=== PATIENT | male | born 1985 | race Caucasian/White ===

== ENCOUNTER 2019-01-31 06:55 | Day surgery (SDC) | payer OTHER ==
[2019-01-31] MEDS ORDERED: NEOSTIGMINE 10 MG INJ (07:00)
[2019-01-31] MEDS ORDERED: CLINDAMYCIN 900 MG/50 ML D5W IVPB IVPB (07:00)
[2019-01-31] MEDS ORDERED: BACITRACIN/POLYMYXIN 28.35 GM OINT TOP (09:18)
[2019-01-31] MEDS ORDERED: ROCURONIUM 50 MG INJ (09:28)
[2019-01-31] MEDS ORDERED: CEFAZOLIN 1 GM INJ (09:28)
[2019-01-31] MEDS ORDERED: PROPOFOL 20 ML (09:28)
[2019-01-31] MEDS ORDERED: GLYCOPYRROLATE 0.4 MG INJ (09:28)
[2019-01-31] MEDS ORDERED: FENTAnyl 50 MCG/ML VIAL (09:29)
[2019-01-31] MEDS ORDERED: DEXAMETHASONE 4 MG/ML 5 ML INJ (09:29)
[2019-01-31] MEDS ORDERED: ONDANSETRON 4 MG INJ (09:29)
[2019-01-31] MEDS ORDERED: MIDAZOLAM 1 MG/ML 2 ML INJ (09:29)
[2019-01-31] MEDS ORDERED: ROPIVACAINE 0.5 % 30 ML VIAL (09:29)
[2019-01-31] MEDS ORDERED: IPRATROPIUM (NEB) 0.5 MG/2.5 ML AMP HHN (10:00)
[2019-01-31] MEDS ORDERED: MIDAZOLAM 1 MG/ML 2 ML INJ IV (10:00)
[2019-01-31] MEDS ORDERED: TRIMETHOBENZAMIDE 100 MG/ML VIAL IM (10:00)
[2019-01-31] MEDS ORDERED: ALBUTEROL 0.083% (NEB) 2.5 MG/3 ML AMP HHN (10:00)
[2019-01-31] MEDS ORDERED: EPHEDrine SULFATE 50 MG/5 ML SYG IV (10:00)
[2019-01-31] MEDS ORDERED: OXYCODONE/ACETAMINOPHEN (5/325) TAB PO (10:00)
[2019-01-31] MEDS ORDERED: FENTAnyl 50 MCG/ML VIAL IV ×3 (10:00)
[2019-01-31] MEDS ORDERED: HYDROmorphONE 1 MG/5 ML IV SYRINGE IV (10:00)
[2019-01-31] MEDS ORDERED: morphine 2 MG INJ IV (10:00)
[2019-01-31] MEDS ORDERED: hydrALAzine 20 MG INJ IV (10:00)
[2019-01-31] MEDS ORDERED: LABETALOL HCL 20MG INJ IV (10:00)
[2019-01-31] MEDS ORDERED: LABETALOL HCL 20MG INJ (10:12)
[2019-01-31] MEDS: ROPIVACAINE 0.5 % 30 ML VIAL (10:30)
[2019-01-31] MEDS: MEPERIDINE 25 MG INJ IV (12:17)
[2019-01-31] MEDS: ONDANSETRON 4 MG INJ IV (12:17)
[2019-01-31] MEDS: HYDROmorphONE 1 MG/5 ML IV SYRINGE IV ×2 (12:18→12:24)
[2019-01-31] MEDS: KETOROLAC 30 MG INJ IV (12:18)
[2019-01-31] MEDS: DIPHENHYDRAMINE 50 MG INJ IV (12:29)
[2019-01-31] MEDS: OXYCODONE/ACETAMINOPHEN (5/325) TAB PO (13:57)
== END 2019-01-31 14:50 | disposition home or self-care (01) ==
LOC: SDS 06:55
DX: S83.511D Sprain of anterior cruciate ligament of right knee, subsequent encounter (principal); X58.XXXD Exposure to other specified factors, subsequent encounter; M23.221 Derangement of posterior horn of medial meniscus due to old tear or injury, right knee
CPT/HCPCS: 29881; 82306